=== PATIENT | male | born 1955 | race Caucasian/White ===

== ENCOUNTER → 2017-09-06 | Emergency (ER) | payer BC ==
[~2017-09-06] MED LIST: Naproxen 500 MG TAB ONE
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
== END ==
LOC: ERS 08:00
DX: S40.012A Contusion of left shoulder, initial encounter (principal); S00.81XA Abrasion of other part of head, initial encounter; I10 Essential (primary) hypertension; Z79.82 Long term (current) use of aspirin; Z79.899 Other long term (current) drug therapy; V43.52XA Car driver injured in collision with other type car in traffic accident, initial encounter

== ENCOUNTER 2019-03-06 07:14 | Day surgery (SDC) | payer BC ==
[2019-03-05 10:45] VITALS: BMI 28.3
[~2019-03-06 07:14] MED LIST changes: +Fentanyl 100 MCG/2 ML VIAL ONE; +Midazolam HCl 2 mg/2 ml Vial ONE; -Naproxen 500 MG TAB ONE
[2019-03-06] MEDS ORDERED: Phenylephrine 2.5% Ophth Soln 5 ML BOT ONE (07:47)
[2019-03-06] MEDS ORDERED: Cyclopentolate 1% Opth Drop 2 ML BOT ONE (07:47)
[2019-03-06] MEDS ORDERED: EPINEPHrine 0.3 MG in Ophthalmic Irrigation Solution 500 ML IRR SCH (08:00)
[2019-03-06] MEDS ORDERED: Triamcinolone 40 MG/ML VIAL ONE (09:24)
[2019-03-06] MEDS ORDERED: Lidocaine 4% PF 5 ML AMP ONE (09:24)
[2019-03-06] MEDS ORDERED: PROPOFOL 200 MG/20 ML VIAL ONE (09:24)
[2019-03-06] MEDS ORDERED: Bupivacaine PF 0.75% SDV 10 ML ONE (09:24)
[2019-03-06] MEDS ORDERED: Metoclopramide HCl 10 MG/2 ML VIAL ONE (09:24)
[2019-03-06] MEDS ORDERED: Lidocaine 1% PF 5 ML VIAL ONE ×2 (09:24)
[2019-03-06] MEDS ORDERED: Atropine Sulfate 1% Ophth Ointment 3.5 gm Tube ONE (09:24)
[2019-03-06] MEDS ORDERED: Ondansetron PF 4 MG/2 ML Vial ONE (09:24)
[2019-03-06] MEDS ORDERED: CEFAZOLIN 1 GM VIAL ONE (09:24)
[2019-03-06] MEDS ORDERED: Maxitrol 0.1% Opth Oint 3.5 GM TUBE ONE (09:24)
[2019-03-06] MEDS ORDERED: Dexamethasone 20 MG/5 ML VIAL ONE (09:24)
--- NOTE | 2019-03-06 13:13 | OP ---
DATE OF PROCEDURE: 03/06/2019 PREOPERATIVE DIAGNOSES: 1. Open globe. 2. Vitreous hemorrhage. POSTOPERATIVE DIAGNOSES: 1. Aphakia, right eye. 2. Open globe, right eye. 3. Iris defect, right eye. 4. Vitreous hemorrhage, right eye. ANESTHESIA: General endotracheal anesthesia. PROCEDURE IN DETAIL: The patient was identified in the preoperative holding area. Appropriate informed consent for the planned surgical procedure on the right eye had been obtained. The patient was taken to the operative suite, where general endotracheal anesthesia was initiated. The patient was prepped and draped carefully with no pressure being applied to the globe. The patient was prepped and draped in the usual sterile manner and a lid speculum was placed. The conjunctiva was dissected carefully superiorly, superotemporally carefully identified an 8-mm superior temporal scleral laceration, exposed iris was removed and the sclera was closed with multiple interrupted 7-0 Vicryl sutures. Globe was noted to be watertight at this time. Trocars placed supratemporally, inferotemporally, supranasally. Infusion line was placed inferotemporally and noted to be clear vitreous base. Light pipe vitreous cutter inserted into the eye. Core vitrectomy was performed. A dense vitreous hemorrhage was cleared, revealing the absence of intraocular lens in the capsular bag. Careful examination of the entire globe failed to reveal the intra-ocular lens as did exploration superotemporally posterior to the laceration. Vitreous hemorrhage was cleared. Two sutures were placed through the iris superiorly, rounding the pupil. Trocars were removed and all sclerotomies were suture closed. Eye was retaining pressure well. Conjunctiva was closed with 6-0 plain gut suture. Retrobulbar Kenalog and retrobulbar Ancef were placed. Antibiotic and atropine ointment were placed. Eye was patched and shielded. The patient was taken to postoperative recovery unit in good condition, having suffered no immediate perioperative complications. The patient was instructed to keep patch and shield on, to avoid lifting and bending, and follow up in the morning. Job ID: [id number]
== END 2019-03-06 13:40 | disposition home or self-care (01) ==
LOC: SDC 07:14
PROVIDERS: ATTEND Ophthalmology Retina Specialist
PROC: 08QC3ZZ Repair Right Iris, Percutaneous Approach (ICD-10-PCS; principal; 2019-03-06)
PROC: 08T43ZZ Resection of Right Vitreous, Percutaneous Approach (ICD-10-PCS; principal; 2019-03-06)
PROC: 08Q6XZZ Repair Right Sclera, External Approach (ICD-10-PCS; principal; 2019-03-06)
DX: H43.11 Vitreous hemorrhage, right eye (principal); S05.31XA Ocular laceration without prolapse or loss of intraocular tissue, right eye, initial encounter; H21.9 Unspecified disorder of iris and ciliary body; H27.01 Aphakia, right eye; Z79.82 Long term (current) use of aspirin; Z79.899 Other long term (current) drug therapy; X58.XXXA Exposure to other specified factors, initial encounter
CPT/HCPCS: J0171; J0690; J1100; J2001; J2250; J2405; J2704; J2765; J3010; J3301; J3490

== ENCOUNTER 2019-12-01 07:40 | Outpatient (CLI) | payer BC, OTHER ==
[2019-12-02 15:27] LABS: SARS-CoV-2 MS2 Positive; SARS-CoV-2 N Gene Negative; SARS-CoV-2 S Gene Negative; SARS-CoV-2 by NAA Not Detected (NotDetected); SARS-CoV-2 orf1ab Negative
== END 2019-12-01 07:41 | disposition home or self-care (01) ==
LOC: LABBT 07:40
PROVIDERS: ATTEND Ophthalmology Retina Specialist
DX: T85.22XD Displacement of intraocular lens, subsequent encounter (principal); H35.372 Puckering of macula, left eye; Z20.828 Contact with and (suspected) exposure to other viral communicable diseases
CPT/HCPCS: 87635; U0003

== ENCOUNTER 2019-12-04 06:29 | Day surgery (SDC) | payer BC ==
[~2019-12-04 06:29] MED LIST changes: +Famotidine/PF 20 mg/2ml Vial ONE; +Fluorouracil 100 MG, Enoxaparin Sodium 25 MG, EPINEPHrine 0.3 MG in Ophthalmic Irrigati... IRR SCH
[2019-12-04] MEDS ORDERED: Cyclopentolate 1% Opth Drop 2 ML BOT ONE (06:45)
[2019-12-04] MEDS ORDERED: Phenylephrine 2.5% Ophth Soln 5 ML BOT ONE (06:45)
[2019-12-04] MEDS ORDERED: Dexamethasone 0.7 MG IMPLANT IO SCH (07:00)
[2019-12-04] MEDS ORDERED: Acetylcholine 20 MG/2 ML VIAL (OR CHARGE) ONE (09:57)
[2019-12-04] MEDS ORDERED: Triamcinolone 40 MG/ML VIAL ONE (09:57)
[2019-12-04] MEDS ORDERED: Metoclopramide HCl 10 MG/2 ML VIAL ONE (09:57)
[2019-12-04] MEDS ORDERED: Ondansetron PF 4 MG/2 ML Vial ONE (09:57)
[2019-12-04] MEDS ORDERED: Lidocaine 1% PF 5 ML VIAL ONE ×2 (09:57)
[2019-12-04] MEDS ORDERED: PROPOFOL 200 MG/20 ML VIAL ONE (09:57)
[2019-12-04] MEDS ORDERED: CEFAZOLIN 1 GM VIAL ONE (09:57)
[2019-12-04] MEDS ORDERED: Dexamethasone 4 mg/ml Vial ONE (09:57)
[2019-12-04] MEDS ORDERED: Lidocaine 4% PF 5 ML AMP ONE (09:57)
[2019-12-04] MEDS ORDERED: Indocyanine Green 25 MG/10 ML VIAL ONE (09:57)
[2019-12-04] MEDS ORDERED: EPHEDRINE 25 MG/5 ML SYRINGE ONE (09:57)
[2019-12-04] MEDS ORDERED: Bupivacaine PF 0.75% SDV 10 ML ONE (09:57)
[2019-12-04] MEDS ORDERED: Enoxaparin Sodium 30 MG/0.3 ML SYRINGE ONE (09:57)
[2019-12-04] MEDS ORDERED: Maxitrol 0.1% Opth Oint 3.5 GM TUBE ONE (09:57)
--- NOTE | 2019-12-04 18:05 | EKG ---
Test Reason : PREOP Blood Pressure : / mmHG Vent. Rate : 049 BPM Atrial Rate : 049 BPM P-R Int : 196 ms QRS Dur : 104 ms QT Int : 482 ms P-R-T Axes : 065 063 038 degrees QTc Int : 435 ms Marked sinus bradycardia with sinus arrhythmia Abnormal ECG No previous ECGs available Confirmed by DR. Edu TALBOT (3) on 12/04/2019 6:04:45 PM Referred By: KRIS Confirmed By:DR. Edu TALBOT
--- NOTE | 2019-12-04 23:32 | OP ---
DATE OF PROCEDURE: 12/04/2019 PREOPERATIVE DIAGNOSES: Dislocated intraocular lens and epiretinal membrane, left eye. POSTOPERATIVE DIAGNOSES: Dislocated intraocular lens and epiretinal membrane, left eye. PROCEDURES PERFORMED: Pars plana vitrectomy, membrane peel, and intra-ocular lens exchange, left eye. ANESTHESIA: General endotracheal anesthesia. DESCRIPTION OF PROCEDURE: The patient was identified in the preoperative holding area. Appropriate informed consent for the planned surgical procedure on the left eye had been obtained. The patient was transported to the operative suite and appropriate cardiopulmonary monitoring established. General endotracheal anesthesia was initiated. Retrobulbar block was placed. The patient was prepped and draped in usual sterile manner for ophthalmic surgery on the left eye. Lid speculum was placed in the left eye. A 27-gauge trocar was placed through the conjunctiva and sclera superotemporally, inferotemporally, and superonasally. Infusion line was placed inferotemporally. Light pipe and vitreous cutter were inserted into the eye. Core vitrectomy was performed. Intra-ocular lens was noted to be floating, positioned on the retinal surface. This was placed into the anterior chamber, cut in half and then removed through a superior nasal 3 mm clear corneal incision. Indocyanine green dye was infused on the posterior pole x3, identifying epiretinal membrane. This was very friable and all peelable mounds were removed from the posterior pole. A 20.5 diopter, [id number] lens was then folded and introduced into the anterior chamber via [place] service or work dispatcher and the haptics were externalized using the Yamane technique. The IOL was noted to positioned well superior. The clear corneal incision was suture closed with two 10-0 nylon sutures and sclerotomies were closed with 6-0 plain gut sutures. The Ozurdex was placed in the vitreous space and retrobulbar Kenalog and subconjunctival Ancef were placed. Antibiotic ointment was placed. Eye was patched and shielded. The patient was taken to postop recovery unit in good condition having suffered no immediate perioperative complications. The patient was instructed to keep patch and shield on, avoid lifting or bending. Followup appointment with Dr. Fischer. Job ID: [id number]
== END 2019-12-04 11:35 | disposition home or self-care (01) ==
LOC: SDC 06:29
PROVIDERS: ATTEND Ophthalmology Retina Specialist
PROC: 08NF3ZZ Release Left Retina, Percutaneous Approach (ICD-10-PCS; principal; 2019-12-04)
PROC: 08RK3JZ Replacement of Left Lens with Synthetic Substitute, Percutaneous Approach (ICD-10-PCS; principal; 2019-12-04)
PROC: 08B53ZZ Excision of Left Vitreous, Percutaneous Approach (ICD-10-PCS; principal; 2019-12-04)
PROC: 08PK3JZ Removal of Synthetic Substitute from Left Lens, Percutaneous Approach (ICD-10-PCS; principal; 2019-12-04)
DX: H35.372 Puckering of macula, left eye (principal); T85.22XA Displacement of intraocular lens, initial encounter; Z79.82 Long term (current) use of aspirin; Z79.899 Other long term (current) drug therapy
CPT/HCPCS: 93005; 93010; J0171; J0690; J1100; J1650; J2001; J2250; J2405; J2704; J2765; J3010; J3301; J3490; J7312; J9190; S0028; V2632

== ENCOUNTER 2020-01-26 06:55 | Outpatient (CLI) | payer BC ==
[2020-01-27 00:33] LABS: SARS-CoV-2 MS2 Positive; SARS-CoV-2 N Gene Negative; SARS-CoV-2 S Gene Negative; SARS-CoV-2 by NAA Not Detected (NotDetected); SARS-CoV-2 orf1ab Negative
== END 2020-01-26 06:56 | disposition home or self-care (01) ==
LOC: LABBT 06:55
PROVIDERS: ATTEND Ophthalmology Retina Specialist
DX: Z01.812 Encounter for preprocedural laboratory examination (principal); Z20.828 Contact with and (suspected) exposure to other viral communicable diseases
CPT/HCPCS: 87635; U0003

== ENCOUNTER 2020-01-29 08:22 | Day surgery (SDC) | payer BC ==
[2020-01-28 09:37] VITALS: BMI 29.5
[~2020-01-29 08:22] MED LIST changes: +EPINEPHrine 0.3 MG in Ophthalmic Irrigation Solution 500 ML IRR SCH; -Famotidine/PF 20 mg/2ml Vial ONE; -Fentanyl 100 MCG/2 ML VIAL ONE; -Fluorouracil 100 MG, Enoxaparin Sodium 25 MG, EPINEPHrine 0.3 MG in Ophthalmic Irrigati... IRR SCH; -Midazolam HCl 2 mg/2 ml Vial ONE
[2020-01-29] MEDS ORDERED: Phenylephrine 2.5% Ophth Soln 5 ML BOT ONE (09:20)
[2020-01-29] MEDS ORDERED: Cyclopentolate 1% Opth Drop 2 ML BOT ONE (09:20)
[2020-01-29] MEDS ORDERED: Fentanyl 100 MCG/2 ML VIAL ONE (09:57)
[2020-01-29] MEDS ORDERED: CEFAZOLIN 1 GM VIAL ONE (11:22)
[2020-01-29] MEDS ORDERED: PROPOFOL 200 MG/20 ML VIAL ONE (11:22)
[2020-01-29] MEDS ORDERED: Lidocaine 4% PF 5 ML AMP ONE (11:22)
[2020-01-29] MEDS ORDERED: Lidocaine 1% PF 5 ML VIAL ONE ×2 (11:22)
[2020-01-29] MEDS ORDERED: Glycopyrrolate 0.2 MG/ML 5 ML SYRINGE ONE (11:22)
[2020-01-29] MEDS ORDERED: Dexamethasone 20 MG/5 ML VIAL ONE (11:22)
[2020-01-29] MEDS ORDERED: Bupivacaine PF 0.75% SDV 10 ML ONE (11:22)
[2020-01-29] MEDS ORDERED: Ondansetron PF 4 MG/2 ML Vial ONE (11:22)
[2020-01-29] MEDS ORDERED: Maxitrol 0.1% Opth Oint 3.5 GM TUBE ONE (11:22)
[2020-01-29] MEDS ORDERED: Triamcinolone 40 MG/ML VIAL ONE (11:22)
--- NOTE | 2020-01-30 12:45 | OP ---
DATE OF PROCEDURE: 01/29/2020 PREOPERATIVE DIAGNOSIS: Aphakia, right eye. POSTOPERATIVE DIAGNOSIS: Aphakia, right eye. PROCEDURE PERFORMED: Secondary intra-ocular lens placement, right eye. ANESTHESIA: General endotracheal anesthesia. DESCRIPTION OF PROCEDURE: The patient was identified in the preoperative holding area. Appropriate informed consent for the planned surgical procedure on the right eye had been obtained. The patient was transported to the operative suite. Appropriate cardiopulmonary monitoring was established. General endotracheal anesthesia was initiated. Retrobulbar block was placed. The patient was prepped and draped in usual sterile manner for ophthalmic surgery on right eye. Lid speculum was placed in the right eye. A 25-gauge trocar was placed in the conjunctiva and sclera supratemporally, inferotemporally, and supranasally. Infusion line was placed inferotemporally. Light pipe vitreous cutter inserted into the eye. Core vitrectomy was performed. A superior temporal clear corneal wound was created and a 21.0 diopter [id number] intra-ocular lens was folded and inserted into the anterior chamber using the Yamane technique. The haptics were externalized 180 degrees away from each other and enlarged on the end using a low temperature cautery. The haptics were then pushed flush with sclera and the eye was noted to center well. Two 10-0 nylon sutures were placed into the clear cornea wound and the sclerotomy was suture closed. Periphery was inspected using wide field viewing system. No holes, breaks, or tears were identified. Retrobulbar Kenalog and subconjunctival Ancef were placed. Antibiotic ointment was placed. Eye was patched and shielded. The patient was awakened, taken to postop recovery unit in good condition having suffered no immediate preop complications. The patient was instructed to keep patch shield on. Avoid lifting or bending. Followup appointment with Dr. Fischer. Job ID: [id number]
== END 2020-01-29 13:05 | disposition home or self-care (01) ==
LOC: SDC 08:22
PROVIDERS: ATTEND Ophthalmology Retina Specialist
PROC: 08RJ3JZ Replacement of Right Lens with Synthetic Substitute, Percutaneous Approach (ICD-10-PCS; principal; 2020-01-29)
DX: H27.01 Aphakia, right eye (principal); M45.9 Ankylosing spondylitis of unspecified sites in spine; Z79.82 Long term (current) use of aspirin; Z79.899 Other long term (current) drug therapy
CPT/HCPCS: J0171; J0690; J1100; J2001; J2405; J2704; J3010; J3301; J3490; V2632